=== PATIENT | male | born 1970 | race Caucasian/White ===

== ENCOUNTER → 2016-08-21 | Outpatient (CLI) | payer OTHER ==
[2016-08-21 09:54] LABS: HEMOGLOBIN 13.9 gm/dl (14.0-17.5); RED BLOOD COUNT 4.85 M/UL (4.20-5.50); WHITE BLOOD COUNT 5.9 K/UL (4.5-11.0)
[2016-08-21 10:09] LABS: BUN/CREATININE RATIO 18 (0-10)
== END ==
LOC: LAB 08:47
PROVIDERS: Nurse Practitioner Primary Care; Psychiatry & Neurology Psychiatry
DX: G80.9 Cerebral palsy, unspecified (principal); E03.9 Hypothyroidism, unspecified; G43.909 Migraine, unspecified, not intractable, without status migrainosus; Z79.899 Other long term (current) drug therapy
CPT/HCPCS: 36415; 80053; 80061; 83036; 84443; 85025

== ENCOUNTER → 2021-05-09 | Outpatient (CLI) | payer OTHER | LOC: CT 13:18 | DX: K59.00 Constipation, unspecified (principal); N17.9 Acute kidney failure, unspecified; R53.83 Other fatigue; R10.84 Generalized abdominal pain; N20.0 Calculus of kidney; Z96.0 Presence of urogenital implants ==

== ENCOUNTER 2021-05-16 15:15 | Emergency (ER) | payer OTHER ==
[2021-05-16 18:36] LABS: RED BLOOD COUNT 4.36 M/UL (4.20-5.50); WHITE BLOOD COUNT 5.9 K/UL (4.5-11.0)
[2021-05-16] MEDS ORDERED: CHRONULAC20 GM/30 M PO (23:01)
[2021-05-16] MEDS ORDERED: LAXATIVE SUPPOS10 MG PR (23:03)
== END 2021-05-17 00:20 | disposition home or self-care (01) ==
LOC: ER1 15:15
PROVIDERS: Physician Assistant
DX: K59.00 Constipation, unspecified (principal); I10 Essential (primary) hypertension; Z91.040 Latex allergy status
CPT/HCPCS: 74018; 80053; 85025; 96374; 99284; J0696; Q9967

== ENCOUNTER → 2021-05-16 | Outpatient (CLI) | payer OTHER ==
[~2021-05-16] MED LIST: CHRONULAC20 GM/30 M PO; LAXATIVE SUPPOS10 MG PR
== END ==
LOC: OPSV 12:35
DX: K59.00 Constipation, unspecified (principal)
CPT/HCPCS: G0463